=== PATIENT | female | born 1940 | race Caucasian/White ===

== ENCOUNTER 2018-09-29 14:18 | Emergency (ER) | payer MEDICARE, MEDICAID ==
[~2018-09-29] VITALS: Ht 162.6 cm; Wt 73.5 kg
[2018-09-29 14:25] VITALS: BP 150/65
[2018-09-29] MEDS ORDERED: LIDOCAINE HCL/MPF 1% 30 ML VIAL IJ ONE (14:44)
== END 2018-09-29 17:04 | disposition home or self-care (01) ==
LOC: ER 14:18
DX: S63.283A Dislocation of proximal interphalangeal joint of left middle finger, initial encounter (principal); E11.9 Type 2 diabetes mellitus without complications; F32.9 Major depressive disorder, single episode, unspecified; W01.0XXA Fall on same level from slipping, tripping and stumbling without subsequent striking against object, initial encounter; Y93.01 Activity, walking, marching and hiking; Y92.89 Other specified places as the place of occurrence of the external cause; Y99.8 Other external cause status
CPT/HCPCS: 26770; 73140 ×2; 99284; J3490

== ENCOUNTER 2021-06-09 10:51 | Inpatient (IN) | payer MEDICARE, OTHER ==
[~2021-06-09] VITALS: Ht 152.4 cm; Wt 74.6 kg
--- NOTE | 2021-06-09 11:02 | NUR ---
[facility] 79 FRM HOME C/O BLE PAIN, MORE ON R. ALSO C/O L SHOULDER PAIN FRM OLD INJURY 3MOS AGO SINCE LAST NIGHT.
--- NOTE | 2021-06-09 11:21 | NUR ---
PT TAKEN TO RADIOLOGY VIA [facility]
[2021-06-09] MEDS ORDERED: IBUPROFEN 600 MG TABLET ONE (11:24)
[2021-06-09] MEDS ORDERED: ACETAMINOPHEN ES 500 MG TABLET ONE (11:24)
[2021-06-09] MEDS ORDERED: IBUPROFEN 600 MG TABLET PO ONE (11:30)
[2021-06-09] MEDS ORDERED: ACETAMINOPHEN ES 500 MG TABLET PO ONE (11:30)
[2021-06-09 11:52] LABS: BASOPHILS % (AUTO) 0.3 % (0.0-2.0); EOSINOPHILS % (AUTO) 1.3 % (0.0-6.0); HEMATOCRIT 32 % (33-45); HEMOGLOBIN 10.6 g/dL (11.5-14.8); LYMPHOCYTES # (AUTO) 1.2 K/uL (0.8-4.8); MEAN CORPUSCULAR HGB CONC 33 g/dl (31.0-36.0); MEAN CORPUSCULAR VOLUME 87 fL (82-100); MONOCYTES # (AUTO) 0.9 K/uL (0.1-1.30); MONOCYTES % (AUTO) 8.3 % (2.0-12.0); NEUTROPHILS # (AUTO) 8.7 K/uL (1.8-8.9); NEUTROPHILS % (AUTO) 79.1 % (43.0-81.0); PLATELET COUNT (AUTO) 369 K/uL (150-450); RED BLOOD CELL COUNT(AUTO) 3.68 MIL/uL (4.0-5.2)
[2021-06-09 11:58] LABS: CALCIUM, SERUM 9.1 mg/dL (8.5-10.1); CARBON DIOXIDE 24 mmol/L (21-32); CHLORIDE 102 mmol/L (98-107); CREATININE 1.2 mg/dL (0.6-1.3); GLUCOSE 93 mg/dL (74-106); POTASSIUM 4.6 mmol/L (3.5-5.1); SODIUM SERUM 134 mmol/L (136-145); UREA NITROGEN, BLOOD 25 mg/dL (7-18)
--- NOTE | 2021-06-09 12:12 | NUR ---
URINE COLLECTED AND SENT
[2021-06-09 12:31] LABS: BILIRUBIN,URINE NEGATIVE (NEGATIVE); COLOR,URINE YELLOW (YELLOW); LEUKOCYTE ESTERASE ,URINE NEGATIVE (NEGATIVE); NITRITE, URINE NEGATIVE (NEGATIVE); PH,URINE 6.5 (5.0-8.0); PROTEIN,URINE NEGATIVE (NEGATIVE); UGLUCOSE NEGATIVE (NEGATIVE); UROBILINOGEN,URINE 0.2 EU/dL (0.2)
--- NOTE | 2021-06-09 14:11 | NUR ---
MOVE SHEET SUBMITTED AND CALLED FOR MS BED.
--- NOTE | 2021-06-09 14:13 | NUR ---
[facility] CALLED [employer] INSULATOR PAGED.
[2021-06-09] MEDS ORDERED: ATOR10TA PO (14:17)
[2021-06-09] MEDS ORDERED: CYAN100096 PO (14:17)
[2021-06-09] MEDS ORDERED: VALS1TAB4 PO (14:17)
[2021-06-09] MEDS ORDERED: LITH300C2 PO (14:17)
[2021-06-09] MEDS ORDERED: METF-440 PO (14:17)
[2021-06-09] MEDS ORDERED: CHOL100043 PO (14:17)
[2021-06-09] MEDS ORDERED: MYRBETRIQ PO (14:17)
[2021-06-09] MEDS ORDERED: BUPR-54 PO (14:17)
[2021-06-09] MEDS ORDERED: CITA40TA11 PO (14:17)
[2021-06-09] MEDS ORDERED: OLAN5TAB3 PO (14:17)
--- NOTE | 2021-06-09 14:37 | NUR ---
CALLED [facility] AGAIN EMERGENCY SERVICES DISPATCHER PAGED.
--- NOTE | 2021-06-09 14:41 | NUR ---
covid swab done and sent to lab
[2021-06-09] MEDS ORDERED: ZIPRASIDONE MESYLATE 20 MG/VIAL VIAL IM ONE ×2 (14:49→15:00)
[2021-06-09] MEDS ORDERED: NORMAL SALINE FLUSH 10 ML SYR ONE (14:50)
[2021-06-09] MEDS ORDERED: Z GUARD REMEDY 4 OZ OINT TP PRN (15:30)
[2021-06-09] MEDS ORDERED: DEXTROSE 50%-WATER 50 ML DISP.SYRIN IV PRN (15:30)
[2021-06-09] MEDS ORDERED: MAG HYDROX/AL HYDROX/SIMETH 30 ML UDC PO PRN (15:30)
[2021-06-09] MEDS ORDERED: MAGNESIUM HYDROXIDE 30 ML UDC PO PRN (15:30)
[2021-06-09] MEDS ORDERED: ACETAMINOPHEN 325 MG TABLET PO PRN (15:30)
[2021-06-09] MEDS ORDERED: ONDANSETRON HCL/PF 4 MG/2 ML VIAL IVP PRN (15:30)
--- NOTE | 2021-06-09 15:39 | NUR ---
SPOKE WITH DAUGHTER MAHESH [phone]
[2021-06-09] MEDS ORDERED: LITHIUM CARBONATE (300 MG CAP) 300 MG CAPSULE ONE (16:57)
[2021-06-09] MEDS: BLOOD SUGAR DIAGNOSTIC 1 EACH STRIP VI SCH ×2 (17:05→22:00)
[2021-06-09] MEDS: LITHIUM CARBONATE (300 MG CAP) 300 MG CAPSULE PO SCH (17:05)
[2021-06-09] MEDS ORDERED: LORA2TAB95 PO (17:21)
--- NOTE | 2021-06-09 18:52 | NUR ---
GOT BED 309-1 > CHANGE OF SHIFT.
--- NOTE | 2021-06-09 19:35 | NUR ---
REPORT GIVEN TO YOUNG FOR CLOVIS
--- NOTE | 2021-06-09 19:52 | NUR ---
PT TRANSPORTED TO ROOM VIA GURNEY WITHOUT INCIDENT
--- NOTE | 2021-06-09 19:52 | NUR ---
TRANSFERRED TO 309 IN STABLE CONDITION
[2021-06-09 20:00] VITALS: BP 135/48
--- NOTE | 2021-06-09 20:00 | NUR ---
MS RN ADMITTING NOTES: RECEIVED PATIENT VIA GURNEY FROM ER ON STABLE CONDITION TRANSFER TO ROOM SKIN ASSESSMENT DONE PICTURE TAKEN AND DOCUMENTED, , INVENTORY DONE AND DOCUMENTED, ORIENTED TO ROOM REMIND TO USE CALL LIGHTS WHEN NEEDED ASSISTANCE, PATIENT ON ROOM AIR SATURATING WELL, V/S ARE FOLLOWS: BP-135/48, P-82,RR-20. TEMP-98.3, O2 AT 95% RA, PATIENT KEPT CLEAN AND DRY ALL NEEDS MET WILL CONTINUE TO MONITOR
[2021-06-09] MEDS: ATORVASTATIN 10 MG TABLET PO SCH (22:24)
[2021-06-09] MEDS: CITALOPRAM HYDROBROMIDE 20 MG TABLET PO SCH (22:24)
[2021-06-09] MEDS: OLANZAPINE 5 MG TABLET PO SCH (22:24)
[2021-06-09] MEDS: *INSULIN REGULAR(HUMULIN R)HUM 100 UNIT/ML VIAL SQ PRN (23:12)
[2021-06-10] MEDS: IV NS 0.9% 1,000 ML IV PRN ×2 (05:05→21:55)
--- NOTE | 2021-06-10 05:57 | NUR ---
MS RN CLOSING NOTES: PATIENT SLEEP IN BED COMFORTABLY, BED IN LOW POSITION CALL LIGHTS WITHIN REACH, NO COMPLAIN OF PAIN AND DISCOMFORT AT THIS TIME, ON ROOM AIR SATURATING WELL, NO SOB WAS OBSERVED, PATIENT ON MONITORING FOR FALL, PATIENT KEPT CLEAN AND DRY ALL NEEDS MET ENDORSE TO INCOMING SHIFT.
[2021-06-10 06:42] LABS: BASOPHILS % (AUTO) 0.3 % (0.0-2.0); EOSINOPHILS % (AUTO) 1.9 % (0.0-6.0); HEMATOCRIT 32 % (33-45); HEMOGLOBIN 10.7 g/dL (11.5-14.8); LYMPHOCYTES # (AUTO) 1.1 K/uL (0.8-4.8); LYMPHOCYTES % (AUTO) 13.8 % (20.0-44.0); MEAN CORPUSCULAR HGB CONC 33 g/dl (31.0-36.0); MEAN CORPUSCULAR VOLUME 88 fL (82-100); MONOCYTES # (AUTO) 0.7 K/uL (0.1-1.30); MONOCYTES % (AUTO) 8.9 % (2.0-12.0); NEUTROPHILS % (AUTO) 75.1 % (43.0-81.0); PLATELET COUNT (AUTO) 351 K/uL (150-450); RED BLOOD CELL COUNT(AUTO) 3.65 MIL/uL (4.0-5.2)
[2021-06-10] MEDS: BLOOD SUGAR DIAGNOSTIC 1 EACH STRIP VI SCH ×4 (06:54→21:28)
--- NOTE | 2021-06-10 06:54 | NUR ---
RN NOTES: BS-118- NO INSULIN GIVEN OUT OF PARAMETER PER SLIDING SCALE
[2021-06-10 07:03] LABS: MAGNESIUM 2.4 mg/dL (1.8-2.4); PHOSPHORUS 4.3 mg/dL (2.5-4.9)
--- NOTE | 2021-06-10 07:30 | NUR ---
RN OPENING NOTES RECEIVED PATIENT SLEEPING IN BED. EASILY AROUSED. VERBALLY RESPONSIVE. NOTED WITH CONFUSION, REALITY AWARENESS PROVIDED. NO SIGNS OF ACUTE DISTRESS NOTED. STABLE ON ROOM AIR. NOTED WITH IV ACCESS ON RIGHT HAND #22G, INTACT AND PATENT WITH NS @75ML/HR INFUSING WELL. DENIES ANY PAIN AT THIS TIME. SAFETY MEASURE IN PLACE. BED IN LOWEST AND LOCKED POSITION, SR UP X4, CALL LIGHT PLACED WITHIN EASY REACH. WILL CONTINUE TO MONITOR PATIENT.
[2021-06-10 08:00] VITALS: BP 130/58
[2021-06-10] MEDS: LITHIUM CARBONATE (300 MG CAP) 300 MG CAPSULE PO SCH ×2 (08:30→16:36)
[2021-06-10] MEDS: BUPROPION XL 150 MG TAB.ER.24 PO SCH (08:30)
[2021-06-10] MEDS: INSULIN REGULAR, HUMAN 100 UNIT/ML 3 ML VIAL SQ PRN ×2 (11:41→16:57)
[2021-06-10 16:00] VITALS: BP 151/66
[2021-06-10] MEDS: LORAZEPAM 1 MG TABLET PO PRN (18:10)
--- NOTE | 2021-06-10 18:34 | NUR ---
RN CLOSING NOTES PATIENT RESTING IN BED. VERBALLY RESPONSIVE. NO SIGNS OF ACUTE DISTRESS NOTED. REMAINS STABLE ON ROOM AIR. WITH IV ACCESS ON RIGHT HAND #22G, INTACT AND PATENT WITH NS @75ML/HR INFUSING WELL. NO C/O PAIN AT THIS TIME. SAFETY MEASURE MAINTAINED. BED IN LOWEST AND LOCKED POSITION, BED ALARM ON, SR UP X4, CALL LIGHT PLACED WITHIN EASY REACH. WILL ENDORSE TO NEXT SHIFT FOR [facility].
--- NOTE | 2021-06-10 20:00 | NUR ---
MS/TELE/RN IV CAME OUT PATIENT IS VERY RESTLESS, OFFERED TO INSERT IV, PATIENT UNCOOPERATIVE HENCE UNABLE TO INSERT NEW IV.
--- NOTE | 2021-06-10 20:31 | NUR ---
MS/TELE/RN AT INITIAL SHIFT ROUND, FOUND PATIENT LYING IN BED AWAKE, ALERT, ORIENTED, COMFORTABLE, NO C/O PAIN, NO DISTRESS NOTED, DAUGHTER AT BEDSIDE. FALL PRECAUTIONS PER PROTOCOL, NEEDS ATTENDED AT THIS TIME, WILL MONITOR.
[2021-06-10] MEDS: CITALOPRAM HYDROBROMIDE 20 MG TABLET PO SCH (21:27)
[2021-06-10] MEDS: ATORVASTATIN 10 MG TABLET PO SCH (21:27)
[2021-06-10] MEDS: OLANZAPINE 5 MG TABLET PO SCH (21:28)
[2021-06-10 22:00] VITALS: BP 138/98
--- NOTE | 2021-06-11 00:52 | NUR ---
MS/TELE/RN PATIENT IS SLEEPING AT THIS TIME, APPEAR COMFORTABLE, NO DISTRESS NOTED, CALL LIGHT IN REACH, WILL CONTINUE TO MONITOR.
--- NOTE | 2021-06-11 04:28 | NUR ---
MS/TELE/RN PATIENT IS AWAKE, I WAS ABLE TO SUCCESSFULLY INSERT NEW IV AT RIGHT F/A G22.
[2021-06-11] MEDS: BLOOD SUGAR DIAGNOSTIC 1 EACH STRIP VI SCH ×4 (06:54→21:56)
--- NOTE | 2021-06-11 06:54 | NUR ---
MS/TELE/RN PATIENT IS AWAKE, A LITTLE RESTLESS, NO DISTRESS NOTED, ALL NEEDS ATTENDED AT THIS TIME, WILL CONTINUE TO MONITOR.
--- NOTE | 2021-06-11 07:30 | NUR ---
RN MS NOTES PT IN BED, AWAKE, ALERT, WITH PERIODS OF CONFUSION, TRYING TO GET OUT OF BED UNASSISTED, BED ALARM ON AT ALL TIMES, IV FLUIDS INFUSING WELL, MONITORED PT CLOSELY, SAFETY PRECAUTIONS OBSERVED.
[2021-06-11 08:00] VITALS: BP 139/75
[2021-06-11] MEDS: LITHIUM CARBONATE (300 MG CAP) 300 MG CAPSULE PO SCH (08:42)
[2021-06-11] MEDS: BUPROPION XL 150 MG TAB.ER.24 PO SCH (08:42)
[2021-06-11] MEDS: QUETIAPINE FUMARATE 25 MG TABLET PO SCH ×2 (10:30→21:55)
--- NOTE | 2021-06-11 10:30 | NUR ---
RN NOTES PER PT'S DAUGHTER'S REQUEST, SHE WANTS TO START DOSE AT NIGHT.
[2021-06-11] MEDS: LORAZEPAM 1 MG TABLET PO PRN (12:24)
[2021-06-11] MEDS: INSULIN REGULAR, HUMAN 100 UNIT/ML 3 ML VIAL SQ PRN ×2 (12:51→17:08)
--- NOTE | 2021-06-11 13:30 | NUR ---
RN MS NOTES PT SEEN BY DR. VALDES, PLAN OF CARE AND MEDICATION CHANGES DISCUSSED WITH PT'S DAUGHTER MAHESH, VERBALIZED UNDERSTANDING, SAFETY PRECAUTIONS OBSERVED.
[2021-06-11 16:00] VITALS: BP 142/79
--- NOTE | 2021-06-11 18:32 | NUR ---
RN MS NOTES PT IN BED, ASLEEP AT THIS TIME, NO SIGN OF PAIN OR DISTRESS, FAMILY AT BEDSIDE, CALL LIGHT WITHIN REACH, BED ALARM ON AT ALL TIMES, IV FLUIDS INFUSING WELL, PT CALM AT THIS TIME, ASSISTED WITH MEALS, KEPT CLEAN AND DRY.
[2021-06-11 21:14] VITALS: BP 133/59
[2021-06-11] MEDS: ATORVASTATIN 10 MG TABLET PO SCH (21:55)
[2021-06-11] MEDS: CITALOPRAM HYDROBROMIDE 20 MG TABLET PO SCH (21:55)
--- NOTE | 2021-06-12 01:42 | NUR ---
MS/TELE/RN PATIENT IS SLEEPING, APPEAR COMFORTABLE, NO DISTRESS NOTED, CALL LIGHT IN REACH, WILL CONTINUE TO MONITOR.
[2021-06-12] MEDS: LORAZEPAM 1 MG TABLET PO PRN ×2 (02:09→12:46)
[2021-06-12] MEDS: IV NS 0.9% 1,000 ML IV PRN (02:18)
--- NOTE | 2021-06-12 02:18 | NUR ---
MS/TELE/RN PATIENT IS AWAKE, RESTLESS IN BED, ATIVAN 2 MG PO WAS GIVEN ORDERED, WILL MONITOR.
--- NOTE | 2021-06-12 02:58 | NUR ---
MS/TELE/RN PATIENT IS SLEEPING AT THIS TIME, APPEAR COMFORTABLE, NO SIGNS OF DISTRESS NOTED, CALL LIGHT IN REACH, WILL CONTINUE TO MONITOR.
--- NOTE | 2021-06-12 05:40 | NUR ---
MS/TELE/RN PATIENT IS STILL SLEEPING, APPEAR COMFORTABLE, NO SIGNS OF DISTRESS NOTED, ALL NEEDS ATTENDED AT THIS TIME, WILL CONTINUE TO MONITOR.
[2021-06-12] MEDS: BLOOD SUGAR DIAGNOSTIC 1 EACH STRIP VI SCH ×4 (06:27→21:50)
--- NOTE | 2021-06-12 07:30 | NUR ---
RN MS NOTES PT IN BED, ASLEEP, EASY TO AROUSE, ALERT, WITH PERIODS OF CONFUSION, NO SIGN OF PAIN OR DISTRESS, CALL LIGHT WITHIN REACH, IV FLUIDS INFUSING WELL, KEPT WARM AND COMFORTABLE IN BED.
[2021-06-12 08:00] VITALS: BP 177/82
[2021-06-12] MEDS: METFORMIN 500 MG TABLET PO SCH ×2 (09:53→17:16)
[2021-06-12] MEDS: QUETIAPINE FUMARATE 25 MG TABLET PO SCH ×2 (09:53→21:34)
[2021-06-12] MEDS: INSULIN REGULAR, HUMAN 100 UNIT/ML 3 ML VIAL SQ PRN (12:09)
[2021-06-12 16:00] VITALS: BP 135/59
--- NOTE | 2021-06-12 18:49 | NUR ---
RN MS NOTES PT IN BED, AWAKE, NO SIGN OF PAIN OR DISTRESS, ASSISTED WITH MEALS, FAMILY AT BEDSIDE, PM MEDS GIVEN, PT COMPLETED MRI CSPINE, TOLERATED WELL, SEEN BY PHYSICAL THERAPIST, SEEN BY DR. VALDES, PLAN OF CARE DISCUSSED WITH DAUGHTER MAHESH, VERBALIZED UNDERSTANDING.
[2021-06-12 20:00] VITALS: BP 157/69
--- NOTE | 2021-06-12 20:30 | NUR ---
MS/TELE/RN AT INITIAL SHIFT ROUND, FOUND LYING IN BED AWAKE, ALERT, COMFORTABLE, NO C/O PAIN, NO DISTRESS NOTED, CALL LIGHT IN REACH, FAMILY MEMBERS AT BEDSIDE, FALL PRECAUTIONS PER PROTOCOL IMPLEMENTED, ALL NEEDS ATTENDED, WILL MONITOR.
[2021-06-12] MEDS: ATORVASTATIN 10 MG TABLET PO SCH (21:34)
[2021-06-12] MEDS: CITALOPRAM HYDROBROMIDE 20 MG TABLET PO SCH (21:34)
[2021-06-12] MEDS: *INSULIN REGULAR(HUMULIN R)HUM 100 UNIT/ML VIAL SQ PRN (21:38)
--- NOTE | 2021-06-12 23:44 | NUR ---
MS/TELE/RN PATIENT IS SLEEPING, APPEAR COMFORTABLE, NO SIGNS OF DISTRESS NOTED, CALL LIGHT IN REACH, WILL CONTINUE TO MONITOR.
[2021-06-13] MEDS: IV NS 0.9% 1,000 ML IV PRN (03:13)
[2021-06-13] MEDS: INSULIN REGULAR, HUMAN 100 UNIT/ML 3 ML VIAL SQ PRN (06:35)
--- NOTE | 2021-06-13 06:54 | NUR ---
MS/TELE/RN PATIENT IS AWAKE, COMFORTABLE AND CALM, NO DISTRESS NOTED, CALL LIGHT IN REACH, ALL NEEDS ATTENDED AT THIS TIME, CALL LIGHT WITHIN REACH. WILL CONTINUE TO MONITOR.
[2021-06-13 08:00] VITALS: BP 145/59
[2021-06-13] MEDS: BLOOD SUGAR DIAGNOSTIC 1 EACH STRIP VI SCH ×3 (08:01→17:25)
[2021-06-13] MEDS: QUETIAPINE FUMARATE 25 MG TABLET PO SCH (08:55)
[2021-06-13] MEDS: METFORMIN 500 MG TABLET PO SCH ×2 (08:55→17:25)
--- NOTE | 2021-06-13 12:45 | NUR ---
PATIENT'S BS RESULT IS 160. PATIENT REFUSED 2 UNITS INSULIN SLIDING SCALE COVERAGE. WILL CONTINUE TO MONITOR.
[2021-06-13 16:00] VITALS: BP 149/66
--- NOTE | 2021-06-13 17:34 | NUR ---
PATIENT'S BS RESULT IS 142- PATIENT AND DAUGHTER AT BEDSIDE REFUSED INSULIN COVERAGE OF 2 UNITS, REPORTED THAT PATIENT JUST HAD A FULL MEAL WITH ORANGE JUICE.
== END 2021-06-13 19:00 | DRG 92 ==
LOC: ER 10:55 → TRANSITION 15:46 → MED 19:21
PROVIDERS: ADMIT Internal Medicine; ATTEND Internal Medicine
DX: G25.1 Drug-induced tremor (principal); F33.3 Major depressive disorder, recurrent, severe with psychotic symptoms; E11.9 Type 2 diabetes mellitus without complications; T43.595A Adverse effect of other antipsychotics and neuroleptics, initial encounter; F41.9 Anxiety disorder, unspecified; M62.81 Muscle weakness (generalized); S06.0X0A Concussion without loss of consciousness, initial encounter; F03.90 Unspecified dementia, unspecified severity, without behavioral disturbance, psychotic disturbance, mood disturbance, and anxiety; Z79.84 Long term (current) use of oral hypoglycemic drugs; W19.XXXA Unspecified fall, initial encounter; Y93.9 Activity, unspecified; Y92.009 Unspecified place in unspecified non-institutional (private) residence as the place of occurrence of the external cause; Z20.822 Contact with and (suspected) exposure to COVID-19
CPT/HCPCS: 36415; 70450-TC; 70551-TC; 71045-TC; 72141-TC; 73560-TC; 80048-TC; 82962-TC; 83735-TC; 84100-TC; 85025-TC; 87081-TC; 97112-TC; 97530-TC; A4216; C9803; G0378; J1815; J3486; J7030